=== PATIENT | male | born 1985 | race African-American/Black ===

== ENCOUNTER 2017-04-09 12:47 | Emergency (ER) | payer OTHER ==
[~2017-04-09] VITALS: Ht 175.3 cm; Wt 80.0 kg
[2017-04-09] MEDS ORDERED: KETOROLAC 60MG/2ML VIAL IM STA (15:09)
[2017-04-09] MEDS ORDERED: HYDROCODONE/APAP 7.5/325MG 1 TAB TABLET PO ONE (16:30)
[2017-04-09] MEDS ORDERED: LIDOCAINE HCL 1% 20ML VIAL (Pyxis) INJ MC ONE (16:30)
[2017-04-09 18:42] VITALS: BP 124/65
== END 2017-04-09 20:35 | disposition home or self-care (01) ==
LOC: ER 14:59
DX: S63.134A Dislocation of proximal interphalangeal joint of right thumb, initial encounter (principal); Z88.1 Allergy status to other antibiotic agents; X58.XXXA Exposure to other specified factors, initial encounter; Y93.52 Activity, horseback riding; Y92.89 Other specified places as the place of occurrence of the external cause; Y99.8 Other external cause status
CPT/HCPCS: 29130; 73130; 96372; 99284; J1885; J3490

== ENCOUNTER 2019-11-06 15:35 | Emergency (ER) | payer MEDICAID, OTHER ==
[~2019-11-06] VITALS: Ht 180.3 cm; Wt 86.0 kg
[2019-11-06] MEDS ORDERED: ACETAMINOPHEN WITH CODEINE 300/30MG TABLET PO ONE (16:15)
[2019-11-06] MEDS ORDERED: KETOROLAC 30MG/ML VIAL IM ONE (17:15)
[2019-11-06 17:31] VITALS: BP 125/87
== END 2019-11-06 17:44 | disposition home or self-care (01) ==
LOC: ER 15:35
DX: S93.402A Sprain of unspecified ligament of left ankle, initial encounter (principal); S93.602A Unspecified sprain of left foot, initial encounter; Z88.1 Allergy status to other antibiotic agents; X58.XXXA Exposure to other specified factors, initial encounter; Y93.89 Activity, other specified; Y92.89 Other specified places as the place of occurrence of the external cause; Y99.8 Other external cause status
CPT/HCPCS: 73610; 73630; 96372; 99284; J1885; Z7610

== ENCOUNTER 2020-02-02 06:19 | Emergency (ER) | payer MEDICAID ==
[~2020-02-02] VITALS: Ht 180.3 cm; Wt 86.2 kg
[2020-02-02] MEDS ORDERED: IBUPROFEN 600MG TABLET PO STA (08:38)
[2020-02-02 10:12] VITALS: BP 135/78
== END 2020-02-02 10:13 | disposition home or self-care (01) ==
LOC: ER 06:19
DX: R06.00 Dyspnea, unspecified (principal); Z20.828 Contact with and (suspected) exposure to other viral communicable diseases; M25.572 Pain in left ankle and joints of left foot
CPT/HCPCS: 71045; 93005; 99283